=== PATIENT | female | born 1995 | race Caucasian/White ===

== ENCOUNTER → 2021-03-20 | Day surgery (SDC) | payer OTHER ==
[~2021-03-20] MED LIST: ACID REDUCER20 MG PO
== END | disposition home or self-care (01) ==
LOC: OR 07:10
DX: K21.00 Gastro-esophageal reflux disease with esophagitis, without bleeding (principal); K31.9 Disease of stomach and duodenum, unspecified; K29.70 Gastritis, unspecified, without bleeding; R63.4 Abnormal weight loss; F17.290 Nicotine dependence, other tobacco product, uncomplicated; Z68.23 Body mass index [BMI] 23.0-23.9, adult; Z88.8 Allergy status to other drugs, medicaments and biological substances
CPT/HCPCS: 84703; J2250; J3010; J7040